=== PATIENT | female | born 1985 ===

== ENCOUNTER 2017-09-07 20:58 | Emergency (ER) | payer SELFPAY ==
[2017-09-07 21:34] VITALS: BP 132/95; PULSE 115; RESP 16; TEMP 98.5; O2SAT 97
[2017-09-07] MEDS ORDERED: Oxycodone/Acetaminophen 5/325 mg Tab PO ONE (21:41)
--- NOTE | 2017-09-07 21:44 | ED PDOC ---
HPI: CCC, URI, Sore Throat Time Seen by Provider: 09/07/17 21:42 Chief Complaint (Nursing): ENT Problem Chief Complaint (Provider): ear pain right History Per: Patient (31 y/o female here with right ear pain x 3 days. Notes pain radiate to dentition. No URI/fevers/chills.) Past Medical History Reviewed: Historical Data, Nursing Documentation, Vital Signs Vital Signs: Last Vital Signs Temp 98.5 F 09/07/17 21:31 Pulse 115 H 09/07/17 21:31 Resp 16 09/07/17 21:31 BP 132/95 H 09/07/17 21:31 Pulse Ox 97 09/07/17 21:31 - Family History Family History: States: No Known Family Hx - Home Medications Home Medications: Ambulatory Orders Medication Instructions Recorded Naproxen 1 tab PO Q12 PRN #14 tab 09/07/17 Neomycin/Polymyxin/Hydrocortis 4 drop AD QID #1 bottle 09/07/17 [Cortisporin Otic Susp] - Allergies Allergies/Adverse Reactions: Allergies Allergy/AdvReac Type Severity Reaction Status Date / Time No Known Allergies Allergy Verified 09/07/17 21:34 Review of Systems ROS Statement: Except As Marked, All Systems Reviewed And Found Negative ENT: Positive for: Ear Pain Physical Exam - Reviewed Nursing Documentation Reviewed: Yes Vital Signs Reviewed: Yes - Physical Exam Appears: Positive for: Well, Non-toxic, No Acute Distress Head Exam: Positive for: ATRAUMATIC, NORMAL INSPECTION, NORMOCEPHALIC Skin: Positive for: Normal Color, Warm, DRY Eye Exam: Positive for: EOMI, Normal appearance, PERRL ENT: Positive for: TM Is/Are (wnl). Negative for: Normal ENT Inspection ( moderate right ear canal swelling) Neck: Positive for: Normal, Painless ROM Cardiovascular/Chest: Positive for: Regular Rate, Rhythm Respiratory: Positive for: CNT, Normal Breath Sounds Gastrointestinal/Abdominal: Positive for: Normal Exam, Bowel Sounds, Soft Back: Positive for: Normal Inspection Extremity: Positive for: Normal ROM Neurologic/Psych: Positive for: Alert, Oriented - ECG O2 Sat by Pulse Oximetry: 97 - Progress ED Course And Treament: percocet 5/325 mg x 1 dose Disposition - Clinical Impression Clinical Impression: Otitis externa - Patient ED Disposition Is Patient to be Admitted: No - Disposition Referrals: [facility] [place] [Outside] Disposition: Routine/Home Disposition Time: 21:44 Condition: FAIR Prescriptions: Naproxen 1 tab PO Q12 PRN #14 tab PRN Reason: Pain, Moderate (4-7) Neomycin/Polymyxin/Hydrocortis [Cortisporin Otic Susp] 4 drop AD QID #1 bottle Instructions: Otitis Externa (ED) Forms: [facility] ED School/Work Excuse Print Language: DANISH
[2017-09-07] MEDS ORDERED: Oxycodone/Acetaminophen 5/325 mg Tab ONE (21:48)
== END 2017-09-07 22:32 | disposition home or self-care (01) ==
LOC: H.ER 20:58
DX: H60.511 Acute actinic otitis externa, right ear (principal)

== ENCOUNTER 2018-10-28 23:58 | Emergency (ER) | payer SELFPAY ==
[2018-10-29 05:29] LABS: BASO # 0.1 K/uL (0.0-0.2); BASO % 0.9 % (0.0-2.0); EOS # 0.5 K/uL (0.0-0.7); EOS % 4.6 % (0.0-4.0); HEMOGLOBIN 15.1 g/dL (12.0-16.0); LYMPH # 2.7 K/uL (1.0-4.3); LYMPH % 27.3 % (20.0-40.0); MEAN CELL VOLUME 86.4 fl (81.0-99.0); MEAN CORPUSCULAR HEMOGLOBIN 29.2 pg (27.0-31.0); MEAN CORPUSCULAR HGB CONC 33.8 g/dL (33.0-37.0); MEAN PLATELET VOLUME 8.9 fl (7.2-11.7); MONO # 0.7 K/uL (0.0-0.8); MONO % 7.1 % (0.0-10.0); NEUT % 60.1 % (50.0-75.0); NRBC % 0.1 % (0.0-0.0); RBC 5.15 Mil/uL (3.80-5.20); RED CELL DISTRIBUTION WIDTH 13.3 % (11.5-14.5); WHITE BLOOD COUNT 9.9 K/uL (4.8-10.8)
[2018-10-29 05:37] LABS: ALB/GLOB RATIO 1.2 (1.0-2.1); ALBUMIN 4.2 g/dL (3.5-5.0); ALT/SGPT 61 U/L (9-52); AST/SGOT 63 U/L (14-36); BLOOD UREA NITROGEN 11 mg/dl (7-17); CALCIUM 9.5 mg/dL (8.4-10.2); GFR NON-AFRICAN AMERICAN > 60
--- NOTE | 2018-10-29 05:51 | ED PDOC ---
HPI: Chest Pain Time Seen by Provider: 10/29/18 04:01 Chief Complaint (Nursing): Weakness/Neurological Deficit Chief Complaint (Provider): Weakness/Neurological Deficit History Per: Patient, [employer] ([employer] GIRALDO) History/Exam Limitations: no limitations Current Symptoms Are (Timing): Still Present Quality: "Pain" Additional Complaint(s): 32 year old female with no history of cardiac risk factors and no history of PE risk factors presents to the ED with chest pain associated with tiredness in his left arm and chest. Patient reports elevated blood pressure in the pharmacy earlier tonight. She offers no complaints of pain. PMD: none provided Past Medical History Reviewed: Historical Data, Nursing Documentation, Vital Signs Vital Signs: Last Vital Signs Temp 98.1 F 10/29/18 01:09 Pulse 80 10/29/18 01:09 Resp 18 10/29/18 01:09 BP 139/84 10/29/18 01:09 Pulse Ox 99 10/29/18 01:09 - Medical History PMH: No Chronic Diseases - Surgical History Surgical History: No Surg Hx - Family History Family History: States: Unknown Family Hx - Social History Current smoker - smoking cessation education provided: No Alcohol: None Drugs: Denies - Immunization History Hx Tetanus Toxoid Vaccination: No Hx Influenza Vaccination: No Hx Pneumococcal Vaccination: No - Home Medications Home Medications: Ambulatory Orders Medication Instructions Recorded Naproxen 1 tab PO Q12 PRN #14 tab 09/07/17 Neomycin/Polymyxin/Hydrocortis 4 drop AD QID #1 bottle 09/07/17 [Cortisporin Otic Susp] - Allergies Allergies/Adverse Reactions: Allergies Allergy/AdvReac Type Severity Reaction Status Date / Time No Known Allergies Allergy Verified 10/29/18 01:09 GRACIA Risk Score for UA/NSTEMI - GRACIA Risk Score Age > 64: NO 3 or more CAD Risk Factors: NO Known CAD (Stenosis greater than 50%): NO Aspirin use in past 7 days: NO Severe Angina: NO EKG ST changes greater than 0.5mm: NO Positive Cardiac Marker: NO GRACIA Score: 0 Risk %: 5% Curb-65 Severity Score - CURB-65 Severity Score Confusion: No Bun >19mg/dl (>7mmol/L): No Respiratory Rate greater than/equal to 30: No Systolic BP <90 or Diastolic BP less than/equal 60mmHg: No Age >64: No Curb-65 Score: 0 Percentage 30-day mortality: 0.6% Review of Systems ROS Statement: Except As Marked, All Systems Reviewed And Found Negative Musculoskeletal: Positive for: Arm Pain Physical Exam - Physical Exam Appears: Positive for: Well, Non-toxic Head Exam: Positive for: ATRAUMATIC Skin: Positive for: Normal Color, Warm, Dry Eye Exam: Positive for: Normal appearance ENT: Positive for: Normal ENT Inspection Neck: Positive for: Normal Cardiovascular/Chest: Positive for: Regular Rate, Rhythm Respiratory: Positive for: Normal Breath Sounds Gastrointestinal/Abdominal: Positive for: Normal Exam Extremity: Positive for: Normal ROM Neurological/Psych: Positive for: Awake, Alert, Oriented - Laboratory Results Result Diagrams: 10/29/18 05:20 10/29/18 05:20 Lab Results: Total Bilirubin 0.5 mg/dl (0.2-1.3) 10/29/18 05:20 AST 63 U/L (14-36) H 10/29/18 05:20 ALT 61 U/L (9-52) H 10/29/18 05:20 Alkaline Phosphatase 97 U/L (38-126) 10/29/18 05:20 Total Protein 7.8 G/DL (6.3-8.2) 10/29/18 05:20 Albumin 4.2 g/dL (3.5-5.0) 10/29/18 05:20 Globulin 3.6 gm/dL (2.2-3.9) 10/29/18 05:20 Albumin/Globulin Ratio 1.2 (1.0-2.1) 10/29/18 05:20 - ECG O2 Sat by Pulse Oximetry: 99 (RA) Pulse Ox Interpretation: Normal Medical Decision Making Medical Decision Makin:22 Impression: chest pain. low pretest probabliity for cardiac or pulmonary etiology Initial Plan: --CMP --CBC --Troponin --CXR --Motrin 600 mg PO --EKG Labs are normal with the exception of elevated LFTs, pt is aware. Will give Motrin and reeval pt feels better w motrin. EKG: NSR 84 LVH pt stable for dc and outpt follow up Scribe Attestation: Documented by Joellen Leija acting as a scribe for Ghada Figueroa MD. Provider Scribe Attestation: All medical record entries made by the Scribe were at my direction and personally dictated by me. I have reviewed the chart and agree that the record accurately reflects my personal performance of the history, physical exam, medical decision making, and the department course for this patient. I have also personally directed, reviewed, and agree with the discharge instructions and d isposition. Disposition - Clinical Impression Clinical Impression: Atypical chest pain - Patient ED Disposition Is Patient to be Admitted: No Counseled Patient/Family Regarding: Studies Performed, Diagnosis, Need For Followup - Disposition Referrals: [facility] [Outside] [facility] [Outside] Lito Morrison MD [Staff Provider] - Disposition: Routine/Home Disposition Time: 06:10 Condition: IMPROVED Additional Instructions: follow up in the clinic in 2 days also with diagrammer and seamer return to the ED with any worsening or concerning symptoms Instructions: Chest Pain (DC) Forms: [facility] (Macanese), [facility] (Macedonian) Print Language: ICELANDIC
[2018-10-29 06:12] VITALS: BP 131/86; PULSE 79; RESP 15; TEMP 98.5
--- NOTE | 2018-10-29 09:02 | CARD ---
APPROVED REPORT Date of service: 10/29/2018 EKG Measurement Heart [id number] <Conclusion> Normal sinus rhythm Voltage criteria for left ventricular hypertrophy Abnormal ECG
--- NOTE | 2018-10-29 09:29 | RAD ---
Date of service: 10/29/2018 HISTORY: shouklder pain COMPARISON: No prior. TECHNIQUE: Chest PA and lateral FINDINGS: LUNGS: No active pulmonary disease. PLEURA: No significant pleural effusion identified. No pneumothorax apparent. CARDIOVASCULAR: No aortic atherosclerotic calcification present. Normal cardiac size. No pulmonary vascular congestion. OSSEOUS STRUCTURES: No significant abnormalities. VISUALIZED UPPER ABDOMEN: Normal. OTHER FINDINGS: None. IMPRESSION: No interval acute cardiopulmonary disease appreciated.
[2018-11-01 08:28] VITALS: O2SAT 99
== END 2018-10-29 06:26 | disposition home or self-care (01) ==
LOC: H.ER 23:58
DX: R07.89 Other chest pain (principal)